=== PATIENT | male | born 1965 | race Caucasian/White ===

== ENCOUNTER 2017-03-18 13:59 | Emergency (ER) | payer OTHER ==
[2017-03-18] MEDS ORDERED: NORMAL SALINE 10 ML SYRINGE FLUSH IVP PRN (14:19)
--- NOTE | 2017-03-18 14:23 | EKG ---
[address] [address] Measurements Intervals [place] Rate: 75 P: 28 [place]: 169 QRS: -15 QRSD: 122 T: 36 QT: 368 QTc: 397 Interpretive Statements SINUS RHYTHM No previous ECG available for comparison Electronically Signed On 03-18-17 15:06:03 MDT by Delmar Valadez [email or web address]
[2017-03-18 14:32] LABS: BASOPHILS # (AUTO) 0.15 10*3/UL; BASOPHILS % (AUTO) 2.8 % (0-1); EOSINOPHILS # (AUTO) 0.18 10*3/UL; EOSINOPHILS % (AUTO) 3.3 % (0-8); HEMATOCRIT 43.9 % (42.0-52.0); HEMOGLOBIN 15.3 g/dL (14.0-18.0); LYMPHOCYTES # (AUTO) 2.12 10*3/uL; MEAN CORPUSCULAR HEMOGLOBIN 30.1 PG (27-31); MEAN CORPUSCULAR HGB CONC 34.9 g/dL (33-37); MEAN CORPUSCULAR VOLUME 86.2 FL (80-90); MEAN PLATELET VOLUME 8.7 FL (7.4-12.2); MONOCYTES # (AUTO) 0.51 10*3/UL (0.3-0.8); MONOCYTES % (AUTO) 9.4 % (5-15); NEUTROPHILS # (AUTO) 2.45 10*3/UL; NEUTROPHILS % (AUTO) 45.2 % (50-80); RED BLOOD COUNT 5.09 10^6/uL (4.70-6.10)
[2017-03-18 14:35] LABS: PLATELET MORPHOLOGY COMMENT NORMAL MORPHOLOGY (NORM); RBC MORPHOLOGY COMMENT NORMAL MORPHOLOGY (NORM); WBC MORPHOLOGY COMMENT NORMAL MORPHOLOGY (NORM)
[2017-03-18 14:42] LABS: BLOOD UREA NITROGEN 14 mg/dL (7-22); CALCIUM 9.4 mg/dL (8.7-10.7); EST GLOMERULAR FILTRATION > 60 (>60 ml/min/1.73m(2)); MAGNESIUM 1.9 mg/dL (1.6-2.4); SERUM ALBUMIN 4.4 g/dL (3.5-4.8)
[2017-03-18] MEDS ORDERED: LORazepam 2 MG/1 ML VIAL IVP ONE (14:44)
[2017-03-18 15:00] VITALS: RESP 17; TEMP 97.5
--- NOTE | 2017-03-18 16:39 | PDOC ---
Palpitations HPI - General Chief Complaint: Palpitations Stated Complaint: FEELING JITTERY, "HEART IS FLYING" Date Seen by Provider: 03/18/17 Time Seen by Provider: 14:20 Source: POSITIVE: Patient Exam Limitations: POSITIVE: No limitations Nurse's Notes Reviewed & Considered: Yes - History of Present Illness Initial Comments: The patient is a 51-year-old male who presents to the emergency department with complaints of heart palpitation and jitteriness. He states that he was driving from [place] and is on his way to [place]. He states while in the car he had fairly sudden onset of pounding heartbeat associated with jitteriness and general malaise. He denies any specific chest pain. He states that he did have a headache earlier today however none currently. He does admit that he did drink several cups of coffee this morning, then drank a Pepsi and was finishing a last couple of coffee when these symptoms started. This is more caffeine than he generally consumes. He states that after onset of symptoms at one point he felt like he was going to pass out. He is feeling better by the time he arrives here in the emergency room. He does have a history of hypertension. He denies any known history of heart disease and has had several stress tests and cardiac workup previously. He currently denies any numbness or weakness in his extremities however his hands still feel somewhat tingly. Past Medical History - heen HEENT History: Denies History Cardiovascular History: Hypertension Respiratory History: Denies History Gastrointestinal History: Denies History Genitourinary History: Denies History Endocrine History: Denies History Musculoskeletal History: Denies History Prosthesis or Implant: No Neurological History: Denies History Blood Disorders: Denies History Psychiatric History: Denies History History of Sexually Transmitted Diseases: No Male Reproductive History: Denies History Cancer History: Denies History In Past Year Been Physically Harmed or Verbally Threatened: No History of MDRO: No History of Other Communicable Diseases: No Tobacco Use: Never Smoker Alcohol Use: None Substance Use Type: None Previous Surgical History: No Anesthesia Reactions: No Malignant Hyperthermia: No Family History of Malignant Hyperthermia: No Significant Family History: No pertinent family hx Past Medical History Reviewed: Reviewed - No Changes ROS - Limitations ROS Limitations: No Limitations Constitution: DENIES: Chills, Fever Cardiovascular: REPORTS: Heart Racing, Heart Palpitations, Blood Pressure Problem (He does have a history of hypertension and states he did take his blood pressure medication last night). DENIES: Chest Pain, Edema Respiratory: DENIES: Hurts To Breathe, Shortness Of Breath Neurological: REPORTS: Denies Neuro Symptoms Gastrointestinal: REPORTS: Denies GI Symptoms Endocrine: REPORTS: Denies Symptoms Musculoskeletal: REPORTS: Denies MS Symptoms Eyes: REPORTS: Denies Symptoms ENT: REPORTS: Denies Symptoms Skin: DENIES: Rash Palpitations Exam - General Appearance General Appearance: REPORTS: Alert, Cooperative, No Acute Distress, Anxious - HEENT HEENT: POSITIVE: Head Inspection Nml, Eyes Inspection Nml, Ears Inspection Nml, Pharynx Inspect. Nml, PERRL, EOMI - Neck Neck: POSITIVE: Normal Inspection. NEGATIVE: Lymphadenopathy - Respiratory Respiratory: REPORTS: No Respiratory Distress, Breath Sounds Normal - Cardiovascular Cardiovascular: POSITIVE: Regular Rate and Rhythm, No Murmur Peripheral Pulses: Dorsalis-pedis (R): 2+, Dorsalis-pedis (L): 2+ - Abdomen Abdomen: Soft: (All Quadrants), Denies Tenderness: (All Quadrants), No Distention: (All Quadrants) - Skin Skin: REPORTS: Intact, No Rash - Extremities Extremity: Normal ROM: (All Extremities), Normal Inspection: (All Extremities) - Neurological / Psychological Neurological: POSITIVE: Oriented X3, Motor Normal, Sensation Normal Palpitations Progress - Results Reviewed by me Lab Results Reviewed: Yes Lab Results:: Laboratory Results 03/18/17 Range/Units 14:19 WBC 5.42 (4.8-10.8) 10^3/uL RBC 5.09 (4.70-6.10) 10^6/uL Hgb 15.3 (14.0-18.0) g/dL Hct 43.9 (42.0-52.0) % MCV 86.2 (80-90) FL MCH 30.1 (27-31) PG MCHC 34.9 (33-37) g/dL RDW Std Deviation 40.4 (39-50) fL RDW Coeff of Jaime 13.1 (11.5-14.5) % Plt Count 310 (140-350) 10*3/uL MPV 8.7 (7.4-12.2) FL Immature Gran % (Auto) 0.2 (0-5) % Neut % (Auto) 45.2 L (50-80) % Lymph % (Auto) 39.1 (10-50) % [place] % (Auto) 9.4 (5-15) % Eos % (Auto) 3.3 (0-8) % Baso % (Auto) 2.8 H (0-1) % Immature Gran # (Auto) 0.01 10*3/UL Neut # (Auto) 2.45 10*3/UL Lymph # (Auto) 2.12 10*3/uL [place] # (Auto) 0.51 (0.3-0.8) 10*3/UL Eos # (Auto) 0.18 10*3/UL Baso # (Auto) 0.15 10*3/UL WBC Morphology Comment Normal morphology (NORM) Plt Morphology Comment Normal morphology (NORM) RBC Morph Comment Normal morphology (NORM) Sodium 138 (135-145) meq/L Potassium 3.6 L (3.8-5.2) meq/L Chloride 102 (98-112) meq/L Carbon Dioxide 26 (23-33) meq/L Anion Gap 10 (5-20) BUN 14 (7-22) mg/dL Creatinine 0.8 (0.70-1.50) mg/dL Estimated GFR > 60 (>60 ml/min/1.73m(2)) BUN/Creatinine Ratio 17.50 (6-20) Glucose 119 H (78-110) mg/dL Calculated Osmolality 287.0 (267-292) mOsm/kg Calcium 9.4 (8.7-10.7) mg/dL Magnesium 1.9 (1.6-2.4) mg/dL Total Bilirubin 0.7 (0.3-1.2) mg/dL AST 36 (21-57) IU/L ALT 43 (21-72) IU/L Alkaline Phosphatase 53 (38-126) IU/L Troponin I < 0.012 (< 0.040) ng/mL Total Protein 7.7 (6.1-8.0) g/dL Albumin 4.4 (3.5-4.8) g/dL Globulin 3.3 (2.50-4.10) g/dL Albumin/Globulin Ratio 1.30 (1.3-2.0) mg/g EKG Interpreted/Reviewed By Me:: Yes EKG Interpretation:: POSITIVE: Normal Sinus Rhythm, Normal Rate, Normal QRS, Normal ST/T - Patient's Progress MDM / ED Course: The patient's initial EKG was unremarkable and showed no acute ST segment changes. His heart rate was only in the 70s or 80s on arrival, oxygen saturations were good. His blood pressure was elevated in the 170s systolic. His blood work was all essentially unremarkable the fingerstick blood sugar of 114. The patient's symptoms were gradually improving. It was thought that his symptoms are most likely secondary to the increased caffeine consumption and possibly some component of a panic attack triggered by the extra caffeine. The patient was given Ativan 1 mg IV with improvement in symptoms. Findings were discussed with the patient. I do not think cardiac etiology is very likely at this point. He has had previous workups for his heart recently. At this point I recommend that he rest and push fluids as well as avoid further caffeine consumption. He is advised return to the emergency room if he develops any worsening or change in symptoms and follow-up with his primary care provider later this week. - Consult Counseled: POSITIVE: Patient, RE: Lab Results, RE: DX, RE: Need for F/U Patient Care Time - Estimated PCT Patient Care Time (In Minutes): 30 Vital Signs - Recent Vital Signs Vital Signs: Vital Signs (Last 8 hours) Temp Pulse Resp BP Pulse Ox 03/18/17 14:19 97.5 F 86 17 178/96 98 - VS Reviewed Vital Signs Reviewed: Yes Discharge Clinical Impression: Palpitations, Panic attack Discharge Disposition: Discharged to Home Condition: Stable Patient Instructions Given at Discharge: Palpitations (ED), Panic Attack (ED) Additional Instructions: Your EKG of your heart appeared normal. Your blood pressure was elevated on arrival however did come back down into the normal range while you were here in the emergency department. Her blood work is all essentially normal except for mildly low potassium. At this point it seems that your symptoms are most likely related to the increased caffeine consumption which is triggered some kind of palpitations and panic attack. At this point I would recommend resting and push fluids. Avoid any further caffeine consumption at least for today. Continue to monitor your blood pressure at home. Return to the emergency room if he develops any chest pain, rapid heartbeat, any worsening or change in symptoms. Recommend follow-up with primary care in 1 week. Follow Up With: NONE,NONE [Primary Care Provider] -
== END 2017-03-18 15:25 | disposition home or self-care (01) ==
LOC: ER 13:59
DX: R00.2 Palpitations (principal); F41.0 Panic disorder [episodic paroxysmal anxiety]; R53.81 Other malaise; I10 Essential (primary) hypertension
CPT/HCPCS: 80053; 83735; 84484; 85025; 93005; 93010; 96374; 99283; J2060